=== PATIENT | female | born 1965 | race American Indian/Alaskan Native ===

== ENCOUNTER 2023-08-02 13:19 | Emergency (ER) | payer BC, MEDICAID ==
[~2023-08-02] VITALS: Ht 165.1 cm; Wt 81.3 kg
[2023-08-02 13:22] VITALS: BP 156/44; PULSE 53; RESP 16; TEMP 97.8; O2SAT 98
[2023-08-02] MEDS ORDERED: BACI1PAC7 TP (14:13)
== END 2023-08-02 14:24 | disposition home or self-care (01) ==
LOC: ER 13:19
DX: S61.203A Unspecified open wound of left middle finger without damage to nail, initial encounter (principal); Z79.2 Long term (current) use of antibiotics; X58.XXXA Exposure to other specified factors, initial encounter; Y93.89 Activity, other specified; Y92.89 Other specified places as the place of occurrence of the external cause; Y99.8 Other external cause status
CPT/HCPCS: 29130; 99283; A6222

== ENCOUNTER 2024-03-09 17:54 | Emergency (ER) | payer MEDICARE, MEDICAID ==
[~2024-03-09] VITALS: Ht 162.6 cm; Wt 80.0 kg
[2024-03-09 18:20] LABS: BASOPHILS # (AUTO) 0.1 X10'3 (0-0.2); BASOPHILS % (AUTO) 1.2 % (0-1); EOSINOPHILS % (AUTO) 0.7 % (0-6); HEMATOCRIT 39.6 % (35.0-45.0); HEMOGLOBIN 13.3 g/dl (12.0-16.0); LYMPHOCYTES # (AUTO) 1.2 X10'3 (1.1-4.8); LYMPHOCYTES % (AUTO) 21.3 % (21-51); MEAN CORPUSCULAR HEMOGLOBIN 30.3 PG (27.0-31.0); MEAN CORPUSCULAR HGB CONC 33.5 g/dL (33.0-36.5); MEAN CORPUSCULAR VOLUME 90.4 FL (78-98); MEAN PLATELET VOLUME 8.7 FL (7.4-10.4); MONOCYTES # (AUTO) 0.5 X10'3 (0-0.9); MONOCYTES % (AUTO) 8.2 % (2-12); NEUTROPHILS % (AUTO) 68.6 % (42-75); PLATELET COUNT 282 X10'3 (140-440); RED BLOOD COUNT 4.38 X10'6 (4.20-5.60); RED CELL DISTRIBUTION WIDTH 14.3 % (11.5-14.5); WHITE BLOOD COUNT 5.8 X10'3 (4.5-11.0)
[2024-03-09 18:42] LABS: ALANINE AMINOTRANSFERASE 26 U/L (12-78); ALBUMIN 3.8 G/DL (3.4-5.0); ALBUMIN/GLOBULIN RATIO 0.9 (1.1-1.5); ALKALINE PHOSPHATASE 91 IU/L (46-116); ANION GAP 10 (8-16); ASPARTATE AMINO TRANSFERASE 19 U/L (10-37); BILIRUBIN,TOTAL 0.3 MG/DL (0.1-1.0); BLOOD UREA NITROGEN 23 MG/DL (7-18); CALCIUM 9.6 MG/DL (8.5-10.1); CHLORIDE 104 MMOL/L (99-107); CREATININE 0.92 MG/DL (0.40-0.90); GLUCOSE 114 MG/DL (70-104); POTASSIUM 3.8 MMOL/L (3.5-5.1); SODIUM 144 MMOL/L (135-145); TOTAL CARBON DIOXIDE 29.8 MMOL/L (24-32); TOTAL PROTEIN 7.9 G/DL (6.4-8.2); eCRCL 58 ML/MIN; eGFR 63 ML/MIN
[2024-03-09 18:48] LABS: PRO BRAIN NATRIURETIC PEPTIDE 139 PG/ML (0-125)
[2024-03-09 19:24] VITALS: BP 131/81; PULSE 56; RESP 16; TEMP 98; O2SAT 98
== END 2024-03-09 20:59 | disposition left against medical advice (07) ==
LOC: ER 17:55
DX: R07.9 Chest pain, unspecified (principal); Z53.21 Procedure and treatment not carried out due to patient leaving prior to being seen by health care provider
CPT/HCPCS: 36415; 71045; 80053; 83880; 84484; 85025; 93005

== ENCOUNTER 2024-03-09 23:37 | Emergency (ER) | payer MEDICARE, MEDICAID ==
[~2024-03-09] VITALS: Ht 162.6 cm; Wt 81.8 kg
[2024-03-10 00:50] LABS: EOSINOPHILS # (AUTO) 0.1 X10'3 (0-0.9); HEMOGLOBIN 13.4 g/dl (12.0-16.0); MEAN PLATELET VOLUME 8.8 FL (7.4-10.4)
[2024-03-10 00:57] LABS: BASOPHILS # (AUTO) 0.1 X10'3 (0-0.2); BASOPHILS % (AUTO) 0.8 % (0-1); EOSINOPHILS % (AUTO) 0.8 % (0-6); HEMATOCRIT 39.8 % (35.0-45.0); LYMPHOCYTES # (AUTO) 1.6 X10'3 (1.1-4.8); LYMPHOCYTES % (AUTO) 20.7 % (21-51); MEAN CORPUSCULAR HEMOGLOBIN 30.3 PG (27.0-31.0); MEAN CORPUSCULAR HGB CONC 33.5 g/dL (33.0-36.5); MEAN CORPUSCULAR VOLUME 90.5 FL (78-98); MONOCYTES # (AUTO) 0.6 X10'3 (0-0.9); MONOCYTES % (AUTO) 7.5 % (2-12); NEUTROPHILS # (AUTO) 5.3 X10'3 (1.8-7.7); NEUTROPHILS % (AUTO) 70.2 % (42-75); PLATELET COUNT 282 X10'3 (140-440); RED CELL DISTRIBUTION WIDTH 14.2 % (11.5-14.5); WHITE BLOOD COUNT 7.6 X10'3 (4.5-11.0)
[2024-03-10 01:11] LABS: ALBUMIN 3.9 G/DL (3.4-5.0); ANION GAP 9 (8-16); BLOOD UREA NITROGEN 20 MG/DL (7-18); BUN/CREATININE RATIO 21.7 (10.0-20.0); CALCIUM 9.3 MG/DL (8.5-10.1); CHLORIDE 101 MMOL/L (99-107); CREATININE 0.92 MG/DL (0.40-0.90); GLUCOSE 110 MG/DL (70-104); POTASSIUM 3.9 MMOL/L (3.5-5.1); PRO BRAIN NATRIURETIC PEPTIDE 118 PG/ML (0-125); SODIUM 140 MMOL/L (135-145); TOTAL CARBON DIOXIDE 30.4 MMOL/L (24-32); eCRCL 58 ML/MIN; eGFR 63 ML/MIN
[2024-03-10 01:26] LABS: LIPASE 33 U/L (16-77)
[2024-03-10] MEDS: ondansetron/PF 4mg/2ml inj IV ONE (01:47)
[2024-03-10] MEDS: mag hydrox/Alum hydrox/simeth 30ml oral suspension PO ONE (01:47)
[2024-03-10] MEDS: famotidine/PF 10 mg/ml inj IV ONE (01:47)
[2024-03-10 04:06] VITALS: BP 138/88; PULSE 58; RESP 14; TEMP 98.4; O2SAT 97
== END 2024-03-10 04:08 | disposition home or self-care (01) ==
LOC: ER 23:38
DX: R07.9 Chest pain, unspecified (principal)
CPT/HCPCS: 36415; 80048; 83690; 83880; 84484; 85025; 93005; 96374; 96375; 99285; J2405; J3490

== ENCOUNTER 2025-03-30 14:49 | Emergency (ER) | payer MEDICARE, MEDICAID ==
[~2025-03-30] VITALS: Ht 162.6 cm; Wt 75.1 kg
[2025-03-30 14:53] VITALS: BP 164/81; PULSE 51; RESP 16; TEMP 96.9; O2SAT 98
[2025-03-30] MEDS ORDERED: LIDO700A47 TOP (15:06)
[2025-03-30] MEDS ORDERED: IBUP-864 PO (15:06)
[2025-03-30] MEDS ORDERED: GABA-530 PO (15:06)
--- NOTE | 2025-03-30 15:06 | Physician Documentation ---
History of Present Illness ~ Chief Complaint: Shoulder pain Stated Complaint: SHOULDER PAIN Time Seen by MD: 15:00 Source: patient Mode of Arrival: POV Exam Limitations: no limitations HPI 59 yo patient with acute on chronic bilateral shoulder pain requesting cortisone injections in [place]. She denies injury but did yard work two days ago and drove several hours yesterday. She usually gets these injections at the [facility]. Tetanus within 5 years?: Yes Medication Reconciliation Allergies: Coded Allergies: No Known Allergies (Unverified , 03/09/24) Past Medical History Past Medical History: No Pertinent History Review of Systems All Other Systems at this time: Reviewed and Negative Musculoskeletal: Reports: see HPI Physical Exam Vital Signs: RN Vital Signs have been reviewed: Yes, Temperature: 96.9, Source: Temporal, Heart Rate: 51, Respiratory Rate: 16, BP: 164/81, Pulse Oximetry: 98, Weight: 75.100 General Appearance: alert, WD/WN, no apparent distress Respiratory: lungs clear, normal breath sounds, no respiratory distress Chest: normal inspection; No: tender Cardiovascular: normal peripheral pulses Shoulder: no evidence of injury, pain, soft tissue tenderness Shoulder Pain with ROM Elbow/Forearm: normal inspection Distal Function: normal pulse, normal cap. refill Progress Results/Orders Results/Orders Vital Signs 03/30/25 14:53 Temp 96.9 Pulse 51 Resp 16 B/P (MAP) 164/81 Pulse Ox 98 Medical Decision Making Findings Discussed overuse injury and pain and f/u with pcp. toradol to help with pain. Departure Time of Disposition: 15:04 Disposition: HOME / SELF CARE / HOMELESS Impression: Primary Impression: Strain of shoulder Additional Impression: Shoulder pain Condition: Stable Discharge Instructions: Shoulder Pain Additional Instructions: Take medications as prescribed and f/u with [facility] for injections on Wednesday. Take it easy to see if pain resolves with rest. Use ice and heat for comfort Referrals: NO PRIMARY CARE PROVIDER (PCP) Prescriptions Lidocaine (Lidocaine) 5 % Adh..patch 1 PATCH TOP DAILY for 30 Days, #30 PATCH 0 Refills Prov: LADI KEANE [employer] 03/30/25 Gabapentin (Gabapentin) 100 Mg Capsule 1 CAP PO Q8H PRN for pain for 10 Days, #30 CAP 0 Refills Prov: LADI KEANE [employer] 03/30/25 Ibuprofen (Ibu) 800 Mg Tablet 1 TAB PO Q8H for 7 Days, #21 TAB 0 Refills Prov: LADI KEANE NP 03/30/25 Education Educated: Patient Educated regarding: diagnosis, treatment, need for follow up Signature Scribe Signature: no scribe Attestation: The note accurately reflects work and decisions made by me.Ladi CURTISP 03/30/25 15:06 LAID KEANE NP Mar 30, 2025 15:06
[2025-03-30] MEDS ORDERED: ketorolac trometh 15mg/ml vial 15 MG/ML ML IM ONE (15:10)
[2025-03-30] MEDS ORDERED: ketorolac trometh 30MG/ML vial 30 MG/ML VIAL IM ONE (15:10)
== END 2025-03-30 17:09 | disposition left against medical advice (07) ==
LOC: ER 14:50
DX: S46.912A Strain of unspecified muscle, fascia and tendon at shoulder and upper arm level, left arm, initial encounter (principal); S46.911A Strain of unspecified muscle, fascia and tendon at shoulder and upper arm level, right arm, initial encounter; X58.XXXA Exposure to other specified factors, initial encounter; Y93.89 Activity, other specified; Y92.89 Other specified places as the place of occurrence of the external cause; Y99.8 Other external cause status
CPT/HCPCS: 99283